=== PATIENT | female | born 1960 | race Two or more races ===

== ENCOUNTER → 2024-04-04 | Outpatient (CLI) | payer MEDICARE, MEDICAID, SELFPAY ==
--- NOTE | 2024-04-04 12:40 | XR_ITS ---
Examination: Bone densitometry Date and time of exam:April 04, 2024 1226 hours INDICATIONS: Hysterectomy age 43, family history, mother hip fracture, diabetic, vitamin D 20 years Technique: Lumbar spine and hip total bone mineralization values of an calculated. Peak reference and age match control results have been displayed. Findings: Lumbar spine total bone mineralization is1.045 gm/cm2. This is 0.0 standard deviations at peak reference. This is 1.6 standard deviations above age-matched controls. Hip total bone mineralization is 0.883 gm/cm2 This is 0.6 standard deviations below peak reference. This is 0.5 standard deviations above age-matched controls Impression: There is normal mineralization based on lumbar spine measurements. There is osteopenia based on hip measurements
== END | disposition home or self-care (01) ==
PROVIDERS: PCP Nurse Practitioner Family; Referring Provider Nurse Practitioner Family; Visit Provider Nurse Practitioner Family
DX: M85.80 Other specified disorders of bone density and structure, unspecified site (principal)
CPT/HCPCS: 77080

== ENCOUNTER → 2024-04-07 | Outpatient (CLI) | payer MEDICARE, MEDICAID, SELFPAY ==
--- NOTE | 2024-04-07 11:00 | XR_ITS ---
Examination: Screening digital mammography, bilateral Computer aided detection 3-D breast Tomosynthesis, bilateral Date and time of exam: April 07, 2024 1053 hours No priors Indication: Screening Technique: Nonmagnified MLO, CC views of the breasts to been obtained, reconstructed from 3-D Tomosynthesis images. R2 computer aided detection program utilized for evaluation of suspicious masses and/or abnormal calcifications. 3-D Tomosynthesis images obtained. Findings: Scattered areas of fibroglandular density. Benign calcifications. 32 mm focal asymmetry upper right breast MLO view, 3.2 cm from the nipple IMPRESSION: BI-RADS Category 0: Incomplete: Need additional imaging evaluation 32 mm focal asymmetry upper right breast MLO view, 3.2 cm from the nipple, recommend follow-up spot tomographic views upper outer quadrant right breast anterior depth, right breast sonography to complete the workup
== END | disposition home or self-care (01) ==
LOC: CDIM 10:43
PROVIDERS: Referring Provider Nurse Practitioner Family; Visit Provider Nurse Practitioner Family
DX: Z12.31 Encounter for screening mammogram for malignant neoplasm of breast (principal); R92.8 Other abnormal and inconclusive findings on diagnostic imaging of breast; N64.89 Other specified disorders of breast
CPT/HCPCS: 77063; 77067

== ENCOUNTER → 2024-06-07 | Outpatient (CLI) | payer MEDICARE, MEDICAID, SELFPAY ==
--- NOTE | 2024-06-07 09:30 | XR_ITS ---
Examination: Breast ultrasound, unilateral, right Date and time of exam: 06/07/2024, 10:16 AM INDICATION: Abnormality seen on screening mammogram Technique: Real-time [place] scale ultrasonographic imaging performed right breast including all 4 quadrants as well as nipple retroareolar and axillary region. Findings: Normal fibroglandular tissue. No evidence of abnormal mass. IMPRESSION: Negative exam. BI-RADS Category 1
--- NOTE | 2024-06-07 10:00 | XR_ITS ---
Examination: Diagnostic digital mammography, unilateral, right Computer aided detection 3-D breast Tomosynthesis, unilateral Date and time of exam: 06/07/2024, 10:16 AM Comparisons: 04/07/2024 Indications: Further evaluation of focal asymmetry seen on screening exam. Technique: Nonmagnified MLO, CC views of the right breast have been obtained, reconstructed from 3-D Tomosynthesis images. R2 computer aided detection program utilized for evaluation of suspicious masses and/or abnormal calcifications. 3-D Tomosynthesis images obtained. Technologist: Findings: There are scattered areas of fibroglandular density. No evidence of abnormal masses or suspicious calcifications. The previously described abnormality does not persist on spot compression views and represents superimposition of normal fibroglandular tissue. Impression: BI-RADS category 1: Negative findings (within normal) Recommend 1 year follow-up mammogram
== END | disposition home or self-care (01) ==
PROVIDERS: PCP Family Medicine; Referring Provider Family Medicine; Visit Provider Family Medicine
DX: R92.311 Mammographic fatty tissue density, right breast (principal)
CPT/HCPCS: 76641; 77061; 77065; G0279

== ENCOUNTER → 2024-07-26 | Outpatient (CLI) | payer MEDICARE, MEDICAID, SELFPAY ==
--- NOTE | 2024-07-26 12:30 | XR_ITS ---
Examination: Thyroid sonography complete TECHNIQUE: Grayscale sonographic images thyroid lobes Exam date and time: July 26, 2024 1312 hours INDICATIONS: Low thyroid function on laboratory examination one month ago FINDINGS: Right thyroid 5.0 cm Lower pole nodule 18 x 15 x 17 mm Lower pole nodule 8 x 4 x 7 mm Left thyroid 5.4 cm Upper pole nodule 16 x 12 x 17 mm Midpole nodule 26 x 18 x 24 mm Lower pole nodule 33 x 29 x 35 mm IMPRESSION: Bilateral large thyroid nodules as above, consider ultrasound-guided fine needle aspiration of the large lower pole right thyroid nodule and the mid and lower pole left thyroid nodules
== END | disposition home or self-care (01) ==
PROVIDERS: PCP Family Medicine; Referring Provider Family Medicine; Visit Provider Family Medicine
DX: E04.2 Nontoxic multinodular goiter (principal)
CPT/HCPCS: 76536